=== PATIENT | male | born 1995 | race Native Hawaiian/Other Pacific Islander ===

== ENCOUNTER 2020-03-23 14:59 | Emergency (ER) | payer OTHER ==
[~2020-03-23] VITALS: Ht 180.3 cm; Wt 102.8 kg
[2020-03-23] MEDS ORDERED: ACETAMINOPHEN 500 MG TAB PO ONE (16:30)
[2020-03-23 16:52] VITALS: BP 142/92
[2020-03-23] MEDS ORDERED: cloNIDine 0.1 MG TAB PO ONE (17:00)
[2020-03-23 17:10] LABS: BASO % 0.6 % (0.0-1.0); EOS # 0.1 10^3/uL (0.0-0.5); EOS % 0.7 % (0.0-3.0); HEMATOCRIT 46.9 % (42.0-52.0); HEMOGLOBIN 15.1 g/dl (13.5-17.5); LYMPH # 1.6 10^3/uL (1.5-5.0); LYMPH % 22.2 % (24.0-44.0); MEAN CORPUSCULAR HEMOGLOBIN 26.8 pg (27.0-33.0); MEAN CORPUSCULAR HGB CONC 32.2 g/dl (32.0-36.5); MEAN CORPUSCULAR VOLUME 83.3 fl (80.0-96.0); MONO # 0.7 10^3/uL (0.0-0.8); MONO % 9.6 % (0.0-5.0); NEUTROPHILS # 4.8 10^3/uL (1.5-8.5); NEUTROPHILS % 66.6 % (36.0-66.0); PLATELET COUNT, AUTOMATED 186 10^3/uL (150-450); RED BLOOD COUNT 5.63 10^6/uL (4.30-6.10); WHITE BLOOD COUNT 7.3 10^3/uL (4.0-10.0)
[2020-03-23 17:31] LABS: BLOOD UREA NITROGEN 11 MG/DL (7-18); CALCIUM LEVEL 9.8 MG/DL (8.5-10.1); CARBON DIOXIDE LEVEL 27 MEQ/L (21-32); CHLORIDE LEVEL 107 MEQ/L (98-107); CK-MB VALUE MASS 2.1 NG/ML (<3.6); CPK CREATINE PHOSPHOKINASE 397 U/L (39-308); CREATININE FOR GFR 0.89 MG/DL (0.70-1.30); FREE T4 0.88 NG/DL (0.76-1.46); GLOMERULAR FILTRATION RATE > 60.0 (>60); GLUCOSE, FASTING 104 MG/DL (70-100); MB/CK RELATIVE INDEX 0.53 (< OR =4); POTASSIUM SERUM 4.3 MEQ/L (3.5-5.1); SODIUM LEVEL 138 MEQ/L (136-145); THYROID STIMULATING HORMONE 0.613 uIU/ML (0.358-3.740); TROPONIN I < 0.02 NG/ML (< 0.10)
--- NOTE | 2020-03-24 06:48 | ECGEPIP ---
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
== END 2020-03-23 17:17 | disposition left against medical advice (07) ==
LOC: EDSEX 14:59 → M ED 14:59
DX: R03.0 Elevated blood-pressure reading, without diagnosis of hypertension (principal); J45.909 Unspecified asthma, uncomplicated; F17.210 Nicotine dependence, cigarettes, uncomplicated

== ENCOUNTER 2020-05-14 09:16 | Emergency (ER) | payer OTHER ==
[~2020-05-14] VITALS: Ht 180.3 cm; Wt 103.0 kg
[2020-05-14] MEDS ORDERED: ALBUTEROL 90 MCG/ACT 8GM HFA INHALER INH ONE (09:45)
--- NOTE | 2020-05-14 10:14 | REP ---
INDICATION: left rib pain/wheezing COMPARISON: None. TECHNIQUE: Frontal view of the chest with multiple views of the left hemithorax. FINDINGS: Frontal view of the chest demonstrates no acute cardiopulmonary process, contusion, effusion, or pneumothorax. Multiple views of the left hemithorax demonstrates no acute rib fracture/injury or pathology. IMPRESSION: Normal rib series. <Electronically signed by Ambrose Castro > 05/14/20 101
[2020-05-14] MEDS ORDERED: VENTAER INH (10:36)
[2020-05-14] MEDS ORDERED: IBUP80TA PO (10:37)
[2020-05-14 10:58] VITALS: BP 146/92
== END 2020-05-14 11:00 | disposition home or self-care (01) ==
LOC: M ED 09:16
DX: J45.901 Unspecified asthma with (acute) exacerbation (principal); F17.200 Nicotine dependence, unspecified, uncomplicated